=== PATIENT | female | born 1990 | race Caucasian/White ===

== ENCOUNTER 2016-12-15 | Inpatient (IN) | payer OTHER ==
[~2016-12-15] MED LIST: AMOXICILLIN PO; AMOXICILLIN875 MG PO; AMOXIL875 MG PO; ERYTHROMYCIN O3.5 GM OD; FLEXERIL PO; FLEXERIL10 MG PO; HYDROCODON-ACE1 EAC7 PO; HYDROCODON-ACE1 EACH PO; IBUPROFEN400 MG PO; KETOPROFEN PO; KLONOPIN PO; LORTAB 5/500 TA1 TA1 PO; MEDROL4 MG/DOSE- PO; NAPROSYN500 MG PO; ORUDIS75 M1 PO; PHENERGAN PO; PHENERGAN25 MG PO; PROZAC PO; ROBITUSSIN ALL118 ML PO; SEROQUEL PO; ZITHROMAX PO
--- NOTE | ~2016-12-15 | DS ---
Unit #: [id number] #: [id number] Patient: REJI HEARN [id number] [facility] [address] [place] [address] [id number] I MR#: [id number] NAME: REJI HEARN. ROOM: [facility] Age: 26 Sex: F Admission Date: 12/15/2016 : 1990 Discharge Date: 12/17/2016 Attending Physician: Tino Gomez M.D. Primary Care Physician: Generic Doctor Not In System DISCHARGE SUMMARY REASON FOR ADMISSION Homicidal ideation, polysubstance abuse. DIAGNOSTIC STUDIES LABORATORY RESULTS: Urine drug screen positive for marijuana. HOSPITAL COURSE The patient was admitted to inpatient unit on 12/15/2016 and discharged on 12/17/2016. The patient was treated with chemical dependency group, structured milieu, psychoeducation, and medication management. The patient responded well with the above modalities of treatment, started on detox protocol and detox monitoring. The patient was subsequently discharged with a plan to follow up in outpatient program. DISCHARGE MEDICATIONS Latuda 60 mg daily for psychosis, Neurontin 300 mg t.i.d. for mood stabilization and anxiety, and doxepin 100 mg at bedtime for sleep. DISCHARGE DIAGNOSES Psychiatric: 1. Bipolar mood disorder, not otherwise specified, F31.89. 2. Amphetamine use disorder, moderate, F15.20. Secondary diagnosis: Deferred. Medical diagnoses: History of kidney stones, scoliosis. Stressors: Psychosocial stressors. DISCHARGE INSTRUCTIONS The patient is to follow up in outpatient clinic as per social contact worker. CONDITION ON DISCHARGE The patient was pleasant and cooperative. Denied any psychotic symptom or any suicidal ideation. PROGNOSIS Guarded. DIET AND ACTIVITY As tolerated. Dictated by... Tino Gomez M.D. Unit #: [id number] #: [id number] Patient: REJI HEARN SZC/modl TD: 12/18/2016 00:09 JOB #: [id number] DISCHARGE SUMMARY Page 1 of 1 X Tino Gomez MD X DISCHARGE SUMMARY
--- NOTE | ~2016-12-15 | HP ---
Unit #: [id number] #: [id number] Patient: BRONWYN HEARN [id number] [place] [address] [id number] I MR#: [id number] NAME: BRONWYN HEARN. ROOM: [facility] Age: 26 Sex: F Admission Date: 12/15/2016 : 1990 Attending Physician: Tino Gomez M.D. Admitting Physician: Tino Gomez M.D. Primary Care Physician: Generic Doctor Not In System HISTORY AND PHYSICAL HISTORY OF PRESENT ILLNESS Bronwyn is a 26-year-old female admitted on 12/15/[address] [place] [address] for homicidal ideations. PAST MEDICAL HISTORY 1. Scoliosis 2. Bilateral chronic glomerulonephritis and current bacterial conjunctivitis PAST SURGICAL HISTORY None. SOCIAL HISTORY Smokes one pack of cigarettes daily, drinks three to four times weekly and frequent use of methamphetamine and marijuana. She is currently single and living with her ji-iaxyoo-po-law. FAMILY HISTORY (1) . REVIEW OF SYSTEMS CONSTITUTIONAL: No fever or chills. HEENT: Denies any sore throat, ear pain or runny nose. CARDIOVASCULAR: Denies chest pain, irregular heart rhythm or palpitations. CHEST: Denies shortness of breath or cough. No hemoptysis. GASTROINTESTINAL: Denies nausea, vomiting, diarrhea or chronic constipation. ENDOCRINE: Denies history of increased thirst or urination. No recent significant weight loss or gain. GENITOURINARY: Denies dysuria, frequency, or hematuria. SKIN: Denies any rashes. HEMATOLOGIC: Denies history of increased bleeding or bruising. MUSCULOSKELETAL: Denies any hot, swollen joints. No generalized muscle pain. NEUROLOGIC: Denies problems with vision or speech. No frequent, severe headaches. No numbness, tingling or weakness in any extremities. Denies loss of bladder or bowel control. CURRENT MEDICATIONS None. Unit #: [id number] #: [id number] Patient: BRONWYN HEARN ALLERGIES Tramadol and trazodone PHYSICAL EXAMINATION GENERAL: Alert, oriented, in no acute distress. VITAL SIGNS: Blood pressure 96/70, heart rate 96, temperature 98.3. HEIGHT: 5 foot 7 inches. WEIGHT: 120 pounds. SKIN: Warm and dry without rash or lesion. HEENT: Right eye hyperemia of the conjunctiva. NECK: Supple without lymphadenopathy or thyromegaly. HEART: Regular rate and rhythm without murmur. LUNGS: Clear. ABDOMEN: Soft, nontender, without masses or hepatosplenomegaly. : Not done. EXTREMITIES: No evidence of cyanosis, clubbing or edema. Moves all without focal deficit. NEUROLOGICAL: Grossly within normal limits. Cranial Nerves: II: Visual dior are intact. III, IV AND : Extraocular movements are intact. Pupils are equal, round and reactive to light. V: Facial sensation is grossly normal. VII: Facial movements and expression are normal. VIII: Auditory acuity grossly intact. IX, X: Uvula is midline. Phonation is normal. XI: Patient shrugs shoulders and turns head normally. XII: Tongue protrudes in the midline. Sensory and Motor Function: Sensory and motor sensation is grossly normal. Motor: moves all extremities well. Coordination: Gait is normal. Deep Tendon Reflexes: Intact. IMPRESSION 1. Psychiatric admission. 2. Scoliosis. 3. Bilateral chronic glomerulonephritis and current bacterial conjunctivitis. RECOMMENDATIONS Psychiatric, per psychiatrist. MEDICAL: I see no contraindications to participating in facility's activities. MEDICAL PROGNOSIS Good. MEDICAL CONDITION Stable. Dictated by... Catie Case/wilfredo TD: 12/16/2016 03:56 Unit #: [id number] #: [id number] Patient: BRONWYN HEARN JOB #: [id number] HISTORY AND PHYSICAL Page 1 of 1 X RUBIA ORTIZ APRN X HISTORY AND PHYSICAL
--- NOTE | ~2016-12-15 | CO ---
Unit #: [id number] #: [id number] Patient: BRONWYN HEARN [id number] [place] [address] [id number] MR#: [id number] NAME: BRONWYN HEARN. ROOM: [facility] Age: 26 Sex: F Admission Date: 12/15/2016 : 1990 Attending Physician: Tino Gomez M.D. Primary Care Physician: Generic Doctor Not In System Consultation Date: 12/15/2016 CONSULTATION REPORT JOB NOTE: DICTATOR FOR NOT DICTATED HISTORY OF PRESENT ILLNESS Bronwyn reports burning and itching in her right eye for the past day, initially started on 12/14/2016. She has had pink eye in the past and believes that this is the same. She woke up with her eye closed due to discharge, now frequently has discharge as well. She has been washing her hands and using hand spot remover. No complaints. PHYSICAL EXAMINATION CARDIAC: Regular rate and rhythm. No murmurs, gallops, or rubs. RESPIRATORY: Clear to auscultation bilaterally. ENT: Right eye, hyperemia of the conjunctiva with yellow discharge. ASSESSMENT AND PLAN Bacterial conjunctivitis. We will begin polymyxin B/trimethoprim drops in right eye. Please notify, if symptoms are unresolved. Dictated by... Gita Saunders A.P.R.N. for Sabina Collazo/janie TD: 12/16/2016 01:23 JOB #: [id number] CONSULTATION REPORT Page 1 of 1 X GITA ORTIZ APRN X CONSULTATION REPORT
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
--- NOTE | ~2016-12-15 | A ---
[facility] Nutrition Therapy DATE: 12/16/16 Patient: REJI HEARN Physician: IGO Address: [address] [place] [address] Room/Bed: [address], Zip: [place] [address] Admit Date: 12/15/16 Date of : [birth year] Height: 5 7 Weight: 119 54.59203 NUTRITIONAL ASSESSMENT: REASON: LOW BMI (18.8) PATIENT ADMITTED FOR HI AND ANXIETY PMH: SCOLIOSIS, CKD Anthropometrics: HT: 67", WT: 120#, BMI: 18.8, %IBW: 89 Labs: NO LABS AVAILABLE Meds: DOXAPIN, ZYPREXA, DETOX PROTOCOL Assessment: PATIENT IS A 26 Y/O FEMALE ADMITTED FOR HI AND ANXIETY. PATIENT IS CURRENTLY EMPLOYED, LIVES WITH HER MOTHER, SMOKES 1 PPD, HAS DAILY SUBOXONE USE, AND FREQUENT USE OF ETOH, METH, MARIJUANA, AND KLONOPIN. PATIENT HAS BEEN NON-COMPLIANT WITH HER MEDICATIONS FOR SEVERAL MONTHS, AND SHE HAS A HX OF INPATIENT PSYCH AND CHEMICAL DEPENDENCY TREATMENT. UPON ADMIT PATIENT STATED A POOR APPETITE WITH A 30# WEIGHT LOSS X SEVERAL MONTHS, AND HAS NOT BEEN SLEEPING. WEIGHT HX PER [employer] SHOWS WEIGHT FLUCTUATIONS OF 105-124# OVER THE LAST 6 YEARS. WT OF 150# IN 04/2016 IS SUSPECTED TO BE ERRONEOUS. NURSING REPORTS FAIR PO INTAKES. IT IS NOTED THAT PATIENT'S BEHAVIOR HAS BEEN VERY AGGRESSIVE, DEMANDING, AND IMPULSIVE SINCE PATIENT HAS BEEN ON THE UNIT. PATIENT DID NOT SCORE ANY NUTRITIONAL RISK POINTS. PATIENT IS ON A REGULAR DIET WITH NO CAFFEINE. PATIENT'S BMI AND IBW % IS SLIGHTLY BELOW HEALTHY RANGES. THIS RD SUSPECTS WEIGHT AND APPETITE WILL STABILIZE AND POSSIBLY INCREASE FOLLOWING DETOX AND MEDICATION REINITIATION. Dx: INADEQUATE NUTRIENT INTAKE R/T CURRENT CONDITION, DECREASED APPETITE AEB SELF-REPORTED WEIGHT LOSS, LOW BMI OF 18.8 Intervention: REGULAR DIET WITH NO CAFFEINE, MEDS PER MD, DETOX, PSYCH Monitoring, Evaluation and Goals: 1. PO INTAKES >50% OF MEALS 2. PREVENT, CORRECT MICRO/MACRO NUTRIENT DEFICIENCIES MONITOR: WEIGHTS, LABS, PO/FLUID INTAKES Recommendations: 1. CONTINUE REGULAR DIET WITH NO CAFFEINE TOLERATED. OFFER SNACKS BETWEEN MEALS TO INCREASE PO AND KCAL INTAKES [facility] Therapy DATE: 05/22/17 Patient: REJI HEARN Physician: GIO Address: [address] [place] [address] Room/Bed: [address], Zip: [place] [address] Admit Date: 12/15/16 Date of : [birth year] Height: 5 7 Weight: 119 54.42018 2. ENCOURAGE ADEQUATE PO AND FLUID INTAKES 3. IF PO INTAKES ARE BELOW 50% OF MEALS PLEASE ORDER ENSURE BID (PER MD) TO PROMOTE ADEQUATE KCAL AND PROTEIN INTAKES RD TO F/U PER PROTOCOL AND PRN R/T PATIENT MILDLY COMPROMISED Respectfully, MATHEW LOPEZ, DAYSI, LD [employer] [facility] cc: client file
[2016-12-16 09:40] LABS: BASOPHIL# 0.1 X10e3 (0-0.3); BASOPHIL% 1.7 % (0-2.5); EOSINOPHIL# 0.3 X10e3 (0-0.7); EOSINOPHIL% 4.3 % (0.0-7.0); HEMATOCRIT 43.3 % (35.0-45.0); HEMOGLOBIN 14.3 gm/dL (12.0-16.0); LYMPHOCYTE# 2.7 X10e3 (1.0-3.5); LYMPHOCYTE% 42.4 % (17.0-45.0); MEAN CORPUSCULAR HEMOGLOBIN 30.3 PG (28-34); MEAN PLATELET VOLUME 8.6 FL (6.5-11.5); MONOCYTE# 0.6 X10e3 (0-1.0); MONOCYTE% 9.9 % (3.0-12.0); NEUTROPHIL# 2.7 X10e3 (1.5-7.1); NEUTROPHIL% 41.7 % (40-75); PLATELET COUNT 240 X10e3 (140-420); RED BLOOD COUNT 4.71 X10e (3.90-5.30); RED CELL DISTRIBUTION WIDTH 13.7 % (11.0-15.5); WHITE BLOOD COUNT 6.5 X10e3 (4.0-10.5)
[2016-12-16 09:44] LABS: DIFF IND NO
[2016-12-16 10:16] LABS: ALBUMIN SERUM 3.4 g/dL (3.5-5.0); BILIRUBIN,TOTAL 0.4 mg/dL (0.2-2.0); BUN/CREATININE RATIO 21.42; CREATININE SERUM 0.7 mg/dL (0.6-1.4); GLOM FILT RATE Estimated 119.6 mL/min (>60); POTASSIUM 3.7 mmol/L (3.5-5.1)
== END 2016-12-17 12:50 | DRG 885 ==
LOC: P2S 03:56
PROVIDERS: Psychiatry & Neurology Psychiatry
DX: F31.89 Other bipolar disorder (principal); F15.20 Other stimulant dependence, uncomplicated; N03.9 Chronic nephritic syndrome with unspecified morphologic changes; M41.9 Scoliosis, unspecified; Z87.442 Personal history of urinary calculi; F41.9 Anxiety disorder, unspecified; H10.89 Other conjunctivitis
CPT/HCPCS: 80053; 84703; 85025; 86592

== ENCOUNTER 2016-12-31 17:50 | Emergency (ER) | payer OTHER ==
--- NOTE | ~2016-12-31 | CT71 ---
[facility] A Service of [facility] RADIOLOGY TEXT RESULTS PATIENT: diana bolton LOCATION: [facility] : [birth year] UNIT #: [id number] AGE: [address]: Bunny Perez MD SEX: F ORDER DR: [id number] [facility] [address] [place], [place] [address] [id number] MR#: [id number] Acc #: [id number] NAME: DIANA BOLTON : 1990 SEX: F STUDY DATE/TIME: 12/31/2016 18:16 UNIT: SAW ROOM: STUDY DESCRIPTION: CT Head Wo Contrast Attending Physician: Bunny Perez M.D. Ordering Physician: Bunny Perez M.D. Primary Care Physician: Generic Doctor Not In System MEDICAL IMAGING REPORT This report is preliminary unless electronic signature is present EXAM CT head without IV contrast COMPARISON July 12, 2016. INDICATIONS 26-year-old female with altered mental status today. Suspected drug overdose. FINDINGS This CT exam was performed with one or more of the following radiation dose reduction techniques: Automatic exposure control, adjustment of mA and/or kV according to patient size, and iterative reconstruction. The exam is significantly limited by patient motion. Multiple attempts performed, but best images were obtained. Tiny mucous retention cysts versus polyps in the left maxillary sinus. Mastoid air cells, middle ears and visualized paranasal sinuses are otherwise well aerated. There may be a tiny mucous retention cyst versus polyp of the left sphenoid sinus. No acute fractures or suspicious osseous lesions. Normal cerebral volume. No mass effect or abnormal extraaxial fluid collection. No acute intracranial hemorrhage. Although evaluation is limited by motion, there is no evidence of acute ischemia. IMPRESSION No acute intracranial abnormality. Dictated by... Geovani Spaulding M.D. THIS IS AN ELECTRONICALLY VERIFIED REPORT Geovani Spaulding M.D. at 01/06/2017 7:35 AM [facility] A Service of [facility] RADIOLOGY TEXT RESULTS PATIENT: che,diana LOCATION: [facility] : [birth year] UNIT #: [id number] AGE: [address]: Bunny Perez MD SEX: F ORDER DR: JARED/coleen TD: 12/31/2016 23:46 JOB #: [id number] MEDICAL IMAGING REPORT Page 1 of 1 COPY
== END 2016-12-31 19:22 | disposition home or self-care (01) ==
LOC: CED 17:50
DX: R40.1 Stupor (principal); F19.10 Other psychoactive substance abuse, uncomplicated; Z88.5 Allergy status to narcotic agent
CPT/HCPCS: 70450; 99284

== ENCOUNTER 2017-02-19 18:25 | Inpatient (IN) | payer OTHER ==
[~2017-02-19] VITALS: Ht 170.2 cm; Wt 52.2 kg
--- NOTE | ~2017-02-19 | CO ---
Unit #: [id number] #: [id number] Patient: REJI HEARN [id number] [place] [address] [id number] I MR#: [id number] NAME: REJI HEARN. ROOM: [facility] Age: 26 Sex: F Admission Date: 02/19/2017 : 1990 Attending Physician: Tino Gomez M.D. Primary Care Physician: Generic Doctor Not In System Consultation Date: 02/20/2017 CONSULTATION REPORT ORDERING PROVIDER Dr. Gomez. REASON FOR CONSULT Abnormal urinalysis. SUBJECTIVE When I went to see the patient, she was very sleepy and difficult to arouse. However, at this time, she denies any urinary complaints. OBJECTIVE An examination was deferred at this time due to patient's request. Her urinalysis reveals 1+ leukocyte esterase, trace protein, 1+ bacteria in her urine. Her vital signs are stable. ASSESSMENT Leukocytes in the urine. PLAN Get urine culture and sensitivity and urine gonorrhea and chlamydia. If either is positive, we will treat her appropriately. Dictated by... Catie Peacock/janie TD: 02/20/2017 23:31 JOB #: [id number] CONSULTATION REPORT Page 1 of 1 X TONI LAZCANO APRN CONSULTATION REPORT
--- NOTE | ~2017-02-19 | CO ---
Unit #: [id number] #: [id number] Patient: REJI HEARN [id number] [place] [address] [id number] I MR#: [id number] NAME: REJI HEARN. ROOM: P201 Age: 26 Sex: F Admission Date: 02/19/2017 : 1990 Attending Physician: Tino Gomez M.D. Primary Care Physician: Generic Doctor Not In System Consultation Date: 02/23/2017 CONSULTATION REPORT REASON FOR EVALUATION Possible pink eye. HISTORY OF PRESENT ILLNESS The patient is a 26-year-old female, originally admitted secondary to acute psychiatric inpatient/mental illness. Yesterday, it was noted by staff registered nurse the patient began having red injected conjunctiva on the right side as well as purulent drainage. She was initiated on ofloxacin ophthalmic yesterday. At the present time, she while opening her eyes has some difficulty opening her right eye secondary to it being matted shut. Her left eye exam is completely normal. She denies any visual complaints. She does state that she has a prior history of having a pink eye in the past. Extraocular muscles do appear to be intact. INITAL IMPRESSION Acute conjunctivitis, bacterial versus viral. PLAN Ofloxacin ophthalmic has already been initiated, this should be continued for a total of 5 days. If she develops any symptoms in her left eye, it maybe also initiated in her left eye. The patient is well aware in the past of the contagious nature of pink eye. She was encouraged to have appropriate hand washing. She will require contact isolation for approximately 24 hours while on antibiotics. Once the 24 hours is over, then she may participate with other patients. Certainly if her condition worsens, I would be happy to re-evaluate her at any point in time. Thank you Dr. Gomez for this consultation. Dictated by... Sabina Collazo/janie TD: 02/23/2017 19:43 JOB #: [id number] Unit #: [id number] #: [id number] Patient: REJI HEARN CONSULTATION REPORT Page 1 of 1 X Ravindra Benites MD CONSULTATION REPORT
--- NOTE | ~2017-02-19 | PN ---
Unit #: [id number] #: [id number] Patient: BRONWYN MINA [id number] [facility] [address] [place] [address] [id number] I MR#: [id number] NAME: BRONWYN MINA. ROOM: P201 Age: 26 Sex: F Admission Date: 02/19/2017 : 1990 Attending Physician: Tino Gomez M.D. Admitting Physician: Tino Gomez M.D. Primary Care Physician: Generic Doctor Not In System [facility] PROGRESS NOTES DATE OF SERVICE 02/23/2017 DISCUSSION Bronwyn iMna is a 26-year-old female seen on 02/23/2017. Patient interviewed, chart reviewed. Obtained information from nursing staff. Patient reports feeling anxious, nervous, but able to contract for safety. The patient's vital stable 98.2, 84, 82/50. Complete review of systems unremarkable. MENTAL STATUS EXAMINATION General appearance, patient dressed casually. Attention span and concentration fair. Oriented to time, place and person. Mood and affect sad, dysphoric. Speech monotone. Thought process concrete. Patient denied any thoughts of harming self or others. Recent and remote memory poor. Insight and judgement poor. DIAGNOSES Mood disorder NOS ASSESSMENT/PLAN Advise to continue with current medication and therapeutic protocol. If needed consider further adjustment of medication. Dictated by... Sabina Porter/wilfredo TD: 02/25/2017 03:53 JOB #: [id number] Unit #: [id number] #: [id number] Patient: BRONWYN MINA [facility] PROGRESS NOTES Page 1 of 1 X Tino Gomez MD X PROGRESS NOTE
--- NOTE | ~2017-02-19 | PN ---
Unit #: [id number] #: [id number] Patient: REJI HEARN [id number] [facility] [address] [place] [address] [id number] MR#: [id number] NAME: REJI HEARN. ROOM: 71 Age: 26 Sex: F Admission Date: 02/19/2017 : 1990 Attending Physician: Tino Gomez M.D. Admitting Physician: Tino Gomez M.D. Primary Care Physician: Generic Doctor Not In System [facility] PROGRESS NOTES DATE 02/20/2017 DISCUSSION Ms. Barnhart is a 26-year-old female. Patient continues to report feeling sad, depressed, withdrawn, isolative, flat affect. Patient reported having suicidal ideation. Compliant with medication but seclusive, isolative. Complete review of system unremarkable. MENTAL STATUS EXAMINATION General appearance, patient dressed casually. Attention span, concentration fair. Oriented in place and person. Mood and affect sad, depressed, withdrawn. Speech monotone. Thought process concrete. Patient denied any homicidal ideation or any hallucinations but sad, depressed, suicidal ideation. Recent and remote memory poor. Insight and judgement poor. Patient's urine drug screen was positive for benzodiazepine, amphetamine, marijuana. CMP was remarkable for AST 47, total protein 5.6. UA 1+ leukocyte esterase, bacteria and WBC 10-25. test negative. CBC unremarkable. DIAGNOSES 1. Bipolar mood disorder NOS. 2. Amphetamine use disorder, moderate. 3. Marijuana abuse, moderate. ASSESSMENT/PLAN Advised to continue with current medication and therapeutic protocol. If needed, consider further adjustment of medication. Dictated by... Sabina Porter/luis TD: 02/20/2017 18:06 JOB #: [id number] Unit #: [id number] #: [id number] Patient: REJI HEARN [facility] PROGRESS NOTES Page 1 of 1 X Tino Gomez MD PROGRESS NOTE
--- NOTE | ~2017-02-19 | HP ---
Unit #: [id number] #: [id number] Patient: REJI HEARN [id number] [place] [address] [id number] I MR#: [id number] NAME: REJI HEARN. ROOM: [facility] Age: 26 Sex: F Admission Date: 02/19/2017 : 1990 Attending Physician: Tino Gomez M.D. Admitting Physician: Tino Gomez M.D. Primary Care Physician: Generic Doctor Not In System HISTORY AND PHYSICAL HISTORY OF PRESENT ILLNESS The patient is a 26-year-old female admitted to [facility] on 02/19/2017 to withdrawal from heroin. PAST MEDICAL HISTORY 1. Scoliosis. 2. History of bilateral chronic glomerulonephritis. PAST SURGICAL HISTORY The patient denies. SOCIAL HISTORY She is unemployed and homeless, smokes one pack of cigarettes daily, uses marijuana and heroin. FAMILY MEDICAL HISTORY Noncontributory. ALLERGIES Trazodone and tramadol. CURRENT MEDICATIONS 1. Latuda 2. Doxepin 3. Neurontin REVIEW OF SYSTEMS CONSTITUTIONAL: No fever or chills. HEENT: Denies any sore throat, ear pain or runny nose. CARDIOVASCULAR: Denies chest pain, irregular heart rhythm or palpitations. CHEST: Denies shortness of breath or cough. No hemoptysis. GASTROINTESTINAL: Denies nausea, vomiting, diarrhea or chronic constipation. ENDOCRINE: Denies history of increased thirst or urination. No recent significant weight loss or gain. GENITOURINARY: Denies dysuria, frequency, or hematuria. SKIN: Denies any rashes. HEMATOLOGIC: Denies history of increased bleeding or bruising. MUSCULOSKELETAL: Denies any hot, swollen joints. No generalized muscle pain. NEUROLOGIC: Denies problems with vision or speech. No frequent, severe headaches. No numbness, tingling or weakness in any extremities. Denies loss of bladder or bowel control. Unit #: [id number] #: [id number] Patient: REJI HEARN PHYSICAL EXAM GENERAL: She is awake, alert and oriented in no acute distress. VITAL SIGNS: Temperature 97.8, heart rate 89, respiration 16, blood pressure 96/60. HEIGHT: 5'7". WEIGHT: 115 pounds. SKIN: Warm and dry without rash or lesion. HEENT: Normocephalic. TMs not viewed. Oral and nasal passages clear. Conjunctivae clear. PERRLA. EOMs intact. NECK: Supple without lymphadenopathy or thyromegaly. HEART: Regular rate and rhythm without murmur. LUNGS: Clear. ABDOMEN: Soft, nontender. : Not done. EXTREMITIES: No evidence of cyanosis, clubbing or edema. Moves all without focal deficit. NEUROLOGICAL: Grossly within normal limits. Cranial Nerves: II: Visual dior are intact. III, IV AND : Extraocular movements are intact. Pupils are equal, round and reactive to light. V: Facial sensation is grossly normal. VII: Facial movements and expression are normal. VIII: Auditory acuity grossly intact. IX, X: Uvula is midline. Phonation is normal. XI: Patient shrugs shoulders and turns head normally. XII: Tongue protrudes in the midline. Sensory and Motor Function: Sensory and motor sensation is grossly normal. Motor: moves all extremities well. IMPRESSION 1. Psychiatric admission. 2. History of scoliosis. 3. History of bilateral chronic glomerulonephritis. 4. Nicotine dependence. 5. Polysubstance use. RECOMMENDATIONS Psychiatric per psychiatrist. MEDICAL: No contraindication to participate in facility activities. MEDICAL PROGNOSIS Good. MEDICAL CONDITION Stable. Dictated by... Catie Peacock/wilfredo TD: 02/20/2017 23:00 JOB #: [id number] Unit #: [id number] #: [id number] Patient: REJI HEARN HISTORY AND PHYSICAL Page 1 of 1 X TONI LAZCANO APRN HISTORY AND PHYSICAL
--- NOTE | ~2017-02-19 | A ---
[facility] Nutrition Therapy DATE: 02/21/17 Patient: REJI Carrillo DHIRAJ Physician: GIO Address: [address] Room/Bed: [address], Zip: [place] [address] Admit Date: 02/19/17 Date of : [birth year] Height: 5 7 Weight: 114 52.82945 NUTRITIONAL ASSESSMENT: REASON: LOW BMI (18.0) PATIENT ADMITTED FOR SUBSTANCE ABUSE AND DEPRESSION PMH: SCOLIOSIS, CKD Anthropometrics: HT: 67", WT: 115#, BMI: 18.0, %IBW: 85 Labs: 02/20/17- ALB: 3.2, ALL OTHER NUTRITION LABS WNL Meds: DOXEPIN, LATUDA, VISTARIL, NEURONTIN Assessment: PATIENT IS A 26 Y/O MALE ADMITTED FOR DEPRESSION AND SUBSTANCE ABUSE. PATIENT IS CURRENTLY UNEMPLOYED, HOMELESS, SMOKES 1 PPD, HAS DAILY MARIJUANA USE, AND OCCASIONAL USE OF ETOH, XANAX, AND METH. IT IS ALSO NOTED THAT PATIENT'S BOYFRIEND COMMITTED SUICIDE ON 02/06/17. PATIENT HAS BEEN NON-COMPLIANT WITH HER MEDICATIONS, WHICH SHE HAS A HX OF, AND SHE ALSO HAS A HX OF MULTIPLE PSYCH AND CHEMICAL DEPENDENCY HOSPITALIZATIONS. RD ASSESSED 12/16/16- NOTE REVIEWED. UPON ADMIT PATIENT STATED A GOOD APPETITE WITH NO RECENT WEIGHT CHANGES, AND SHE WILL GO DAYS WITHOUT SLEEPING. WEIGHT HX PER [employer] SHOWS WEIGHT FLUCTUATIONS OF 105-124# OVER THE LAST 6 YEARS. NURSING REPORTED POOR PO INTAKES UPON ADMIT, HOWEVER PATIENT SLEPT MOST OF THE DAY. SHE DID NOT SCORE ANY NUTRITIONAL RISK POINTS. THERE ARE NO SKIN OR GI ISSUES NOTED ATT. PATIENT IS ON A REGULAR DIET. CURRENT PSYCH MEDS MAY CAUSE AN INCREASE IN WEIGHT AND APPETITE, WHICH IS DESIRED. Dx: INADEQUATE NUTRIENT R/T DEPRESSION, SUBSTANCE ABUSE AEB LOW BMI, <90% IBW Intervention: REGULAR DIET, MEDS PER MD, PSYCH Monitoring, Evaluation and Goals: 1. ADEQUATE PO INTAKES >50-75% OF MEALS 2. PREVENT, CORRECT MICRO/MACRO NUTRIENT DEFICIENCIES 3. WEIGHT; PROMOTE A STEADY WEIGHT GAIN TOWARDS A HEALTHY BMI OF 19-25, PREVENT WEIGHT LOSS MONITOR: WEIGHTS, LABS, PO/FLUID INTAKES Recommendations: 1. CONTINUE REGULAR DIET TOLERATED. OFFER SNACKS BETWEEN MEALS. WILL INCREASE PATIENT'S ENTREES TO LARGER PORTIONS [facility] Nutrition Therapy DATE: 02/21/17 Patient: REJI HEARN Physician: GIO Address: [facility] [address] Room/Bed: P171-1 [facility], Zip: [place] [address] Admit Date: 02/19/17 Date of : [birth year] Height: 5 7 Weight: 114 52.20415 2. ENCOURAGE ADEQUATE PO AND FLUID INTAKES 3. WEIGH PATIENT ROUTINELY (EVERY 3-4 DAYS) 4. IF PO INTAKES ARE BELOW 50% OF MEALS PLEASE ORDER ENSURE BID TO PROMOTE ADEQUATE KCAL AND PROTEIN INTAKES RD TO F/U PER PROTOCOL AND PRN R/T PATIENT MILDLY COMPROMISED Respectfully, MATHEW LOPEZ, DAYSI, LD [employer] [facility] [employer] cc: client file
--- NOTE | ~2017-02-19 | PN ---
Unit #: [id number] #: [id number] Patient: BRONWYN MINA [id number] [facility] [address] [place] [address] [id number] MR#: [id number] NAME: BRONWYN MINA. ROOM: P201 Age: 26 Sex: F Admission Date: 02/19/2017 : 1990 Attending Physician: Tino Gomez M.D. Admitting Physician: Tino Gomez M.D. Primary Care Physician: Generic Doctor Not In System [facility] PROGRESS NOTES DATE OF SERVICE 02/22/2017 DISCUSSION Ms. Bronwyn Mina is a 26-year-old female seen on 02/22/2017. Patient interviewed, chart reviewed. Obtained information from nursing staff. Patient seclusive, isolative, guarded, flat affect. Vital signs stable 98.4, 79, 91/59. Patient continues to be withdrawn, isolative, flat affect. Complete review of systems unremarkable. MENTAL STATUS EXAMINATION General appearance, patient dressed casually. Attention span and concentration fair. Oriented in place and person. Mood and affect sad, dysphoric, withdrawn, flat affect. The patient denied any suicidal or homicidal ideation but guarded, paranoid. Recent and remote memory poor. Insight and judgement poor. DIAGNOSES 1. Bipolar mood disorder NOS. 2. Cannabis abuse disorder moderate. 3. Sedative abuse disorder moderate. 4. Amphetamine use disorder moderate. ASSESSMENT/PLAN Advise to continue with current medication and therapeutic protocol. If needed consider further adjustment of medication. Dictated by... Sabina Porter/wilfredo TD: 02/24/2017 03:24 JOB #: [id number] Unit #: [id number] #: [id number] Patient: BRONWYN MINA [facility] PROGRESS NOTES Page 1 of 1 X Tino Gomez MD PROGRESS NOTE
--- NOTE | ~2017-02-19 | DS ---
Unit #: [id number] #: [id number] Patient: REJI HEARN [id number] [facility] [address] [place] [address] [id number] I MR#: [id number] NAME: REJI HEARN. ROOM: [facility] Age: 26 Sex: F Admission Date: 02/19/2017 : 1990 Discharge Date: 02/24/2017 Attending Physician: Tino Gomez M.D. DISCHARGE SUMMARY REASON FOR ADMISSION Depression. DIAGNOSTIC STUDIES LABORATORY RESULTS: Urine drug screen positive for benzodiazepine, amphetamine, marijuana. HOSPITAL COURSE The patient was admitted to inpatient unit on 02/19/2017 and discharged on 02/24/2017. The patient was treated on the inpatient unit with group therapy, individual therapy, chemical dependency group, detox protocol, and detox monitoring. The patient was responsive to treatment. Subsequently, the patient was discharge with a plan to follow up in outpatient program. DISCHARGE MEDICATIONS Doxepin 100 mg at bedtime for sleep, Latuda 60 mg daily for mood stabilization, Neurontin 300 mg t.i.d. for chronic pain and anxiety. DISCHARGE DIAGNOSES Psychiatric: Bipolar mood disorder, recurrent, depressed F31.9; amphetamine use disorder, moderate, F15.20; cannabis abuse disorder, moderate, F12.20; sedative hypnotic use disorder, severe, F13.20. Secondary diagnosis: Deferred. Medical diagnoses: History of kidney stones and scoliosis. Stressors: Psychosocial stressor. DISCHARGE INSTRUCTIONS The patient to follow up in outpatient clinic as per bilingual social worker. CONDITION ON DISCHARGE The patient was pleasant and cooperative. Denied any psychotic symptom or any suicidal ideation. PROGNOSIS Guarded. DIET AND ACTIVITY As tolerated. Unit #: [id number] #: [id number] Patient: REJI HEARN Dictated by... Tino Gomez M.D. SZC/wilburl TD: 02/26/2017 02:16 JOB #: [id number] DISCHARGE SUMMARY Page 1 of 1 X Tino Gomez MD X DISCHARGE SUMMARY
--- NOTE | ~2017-02-19 | PA ---
Unit #: [id number] #: [id number] Patient: [facility] [id number] [facility] [address] [place] [address] [id number] I MR#: [id number] NAME: REJI MINA. ROOM: P171 Age: 26 Sex: F Admission Date: 02/19/2017 : 1990 Date of Assessment: Attending Physician: Tino Gomez M.D. Admitting Physician: Tino Gomez M.D. PSYCHIATRIC ASSESSMENT INFORMANTS The patient reliability, poor informant and chart reliability, good. CHIEF COMPLAINT Depression and substance abuse. HISTORY OF PRESENT ILLNESS Ms. Ayana Mina is a 26-year-old female, presented with the above-mentioned complaint. The patient has a history of previous multiple admissions, last admitted on 01/30/2017. The patient reported that she has been feeling really sad, depressed, not sleeping, bad anxiety, trembling, panic attack, and nausea. The patient tested positive for benzodiazepine, amphetamine, and marijuana. The patient currently homeless, increase in depression, substance abuse, referred by [facility] today for having substances in her system. The patient's boyfriend of 9 years committed suicide on 02/06/2017. The patient reports suicidal ideation with a plan to overdose by hanging herself. The patient also endorsing feeling of hopelessness and worthlessness. The patient has not been compliant with her medication. The patient reported use of marijuana, snorting meth, taking Xanax. The patient denied any withdrawal symptoms, but having above-mentioned symptoms. Needing inpatient admission at this time for psychiatric stabilization. PAST PSYCHIATRIC HISTORY Remarkable [facility] and previous inpatient treatment. FAMILY HISTORY AND SOCIAL HISTORY The patient currently homeless, poor support system. No history of abuse. MEDICAL HISTORY Remarkable for history of scoliosis, bilateral chronic glomerulonephritis, and history of bacterial conjunctivitis. ALLERGIES No known drug allergies. MEDICATION HISTORY The patient is on doxepin 100 mg at bedtime, Latuda 60 mg at bedtime, and Neurontin 300 mg t.i.d. ALLERGIES No known drug allergies. Unit #: [id number] #: [id number] Patient: REJI MINA SUBSTANCE ABUSE HISTORY The patient reported tobacco use, age of onset 12; alcohol, age of onset 12; marijuana, age of onset 14; opioid, age of onset 17; amphetamine, age of onset 21; benzodiazepine, age of onset 14. Longest period of sobriety 9 months, last period of sobriety 2 weeks ago. The patient reported history of blackouts, withdrawal symptoms, and IV drug use. Denied any HIV or hepatitis. The patient reported withdrawal symptoms such as vomiting, diarrhea, hot and cold flashes, and body ache. REVIEW OF SYSTEMS HEENT: Eyes, clear. Ears, nose, mouth, and throat; clear. CARDIOVASCULAR: Unremarkable. RESPIRATORY: Unremarkable. GI: Unremarkable. : Unremarkable. SKIN: Unremarkable. LYMPH NODE: Unremarkable. NEUROLOGIC: Unremarkable. ENDOCRINE: Unremarkable. HEMATOLOGIC: Unremarkable. ALLERGIC/IMMUNOLOGIC: Unremarkable. MUSCULOSKELETAL: Muscle strength and tone, no atrophy or abnormal movement. Gait normal. MENTAL STATUS EXAMINATION CONSTITUTIONAL: Measurement of vital signs; temperature 97.5, heart rate 66, respirations 16, oxygen saturation 100%, and blood pressure 97/67. Height 5 feet 7 inches and weight 115 pounds. GENERAL APPEARANCE: The patient dressed casually. The patient not show any facial deformity. MUSCULOSKELETAL: Please see above. PSYCHIATRIC EXAMINATION Description of speech; slow in volume and rate and nonspontaneous. Description of thought process, circumstantial. Description of association, intact. Description of abnormal psychotic thinking; the patient denied any hallucinations or delusions, but suicidal ideation with a plan as mentioned above. Substance abuse. Denied any homicidal ideation or any psychotic symptom. Description of the patient's judgment: Concerning everyday activity, poor. Social situation, poor. Concerning psychiatric condition, poor. Complete mental status examination; oriented in time, place, and person. Recent and remote memory, fair. Attention span and concentration, fair. Language, able to name object and repeat phrases. Fund of knowledge, aware of current event and passive vocabulary intact. Mood and affect, sad and dysphoric. ASSETS AND LIABILITIES Assets, the patient is articulate and able to take care of her ADL. Liability, history of depression and substance abuse. ADMITTING DIAGNOSES Psychiatric: Bipolar mood disorder, recurrent, depressed, severe, F31.9; amphetamine use disorder, moderate, F15.20; cannabis abuse disorder, F12.20; amphetamine use disorder, F15.20; and sedative hypnotic use disorder, F13.20. Unit #: [id number] #: [id number] Patient: REJI MINA Secondary diagnosis: Deferred. Medical diagnoses: History of kidney stones and scoliosis. Stressors: Psychosocial stressors. PSYCHIATRIC PLAN AND TREATMENT GOAL AND DISCHARGE PLAN 1. Advised to admit the patient on the inpatient unit. Provide safe, supportive, and structured environment. 2. Ordered labs; CBC, CMP, UA, and UDS. 3. Precaution for self-harm. 4. Detox protocol and detox monitoring. 5. Advised to resume home medication. If needed, consider further adjustment of medication. The patient to attend group therapy, individual therapy, and chemical dependency group. Treatment goal to attain euthymic mood, gain insight into her problem, and learn coping skills. DISCHARGE PLAN Plan to stabilize the patient and consider followup in outpatient program. ESTIMATED LENGTH OF STAY 5 days. Dictated by... Tino Gomez M.D. LIOR/janie TD: 02/20/2017 15:32 JOB #: [id number] PSYCHIATRIC ASSESSMENT Page 1 of 1 X Tino Gomez MD X PSYCHIATRIC ASSESSMENT
--- NOTE | ~2017-02-19 | PN ---
Unit #: [id number] #: [id number] Patient: BRONWYN MINA [id number] [facility] [address] [place] [address] [id number] MR#: [id number] NAME: BRONWYN MINA. ROOM: P171 Age: 26 Sex: F Admission Date: 02/19/2017 : 1990 Attending Physician: Tino Gomez M.D. Admitting Physician: Tino Gomez M.D. Primary Care Physician: Generic Doctor Not In System [facility] PROGRESS NOTES DATE 02/21/2017 DISCUSSION Ms. Bronwyn Mina is a 26-year-old female seen on 02/21/2017. Patient interviewed. Chart reviewed. Obtained information from nursing staff. Patient was compliant, cooperative but sad, depressed, withdrawn, isolative, flat affect. Patient still very shaky, anxious, nervous, having withdrawals from alcohol. Patient reported still very unsteady but vital signs 98.4, 83, 62. Patient still feeling sad, depressed. Complete review of system unremarkable. MENTAL STATUS EXAMINATION General appearance, patient dressed casually. Attention span, concentration fair. Oriented in time, place and person. Mood and affect labile. Speech monotone. Thought process concrete. Patient denied any thoughts of harming self or others but passive SI, withdrawn, isolative, guarded. Recent and remote memory poor. Insight and judgement poor. DIAGNOSES 1. Bipolar mood disorder NOS. 2. Cannabis abuse, moderate. 3. Sedative/hypnotic use disorder, moderate. 4. Amphetamine use disorder, moderate. ASSESSMENT/PLAN Advised to continue with current medication and therapeutic protocol. If needed, consider further adjustment of medication. Dictated by... Sabina Porter/luis TD: 02/21/2017 20:12 JOB #: [id number] Unit #: [id number] #: [id number] Patient: BRONWYN MINA [facility] PROGRESS NOTES Page 1 of 1 X Tino Gomez MD PROGRESS NOTE
[2017-02-20 09:53] LABS: URINE APPEARANCE CLEAR; URINE BILIRUBIN NEG (NEG); URINE BLOOD NEG (NEG); URINE COLOR YELLOW; URINE GLUCOSE NEG (NEG); URINE KETONE TRACE (NEG); URINE LEUKOCYTE ESTERASE 1+ (NEG); URINE NITRATE NEG (NEG); URINE PH 7.5 (5-8); URINE PROTEIN TRACE (NEG); URINE SPECIFIC GRAVITY 1.034 (1.003-1.035)
[2017-02-20 09:56] LABS: BASOPHIL# 0.2 X10e3 (0-0.3); BASOPHIL% 2.4 % (0-2.5); EOSINOPHIL# 0.4 X10e3 (0-0.7); EOSINOPHIL% 4.9 % (0.0-7.0); HEMATOCRIT 40.6 % (35.0-45.0); HEMOGLOBIN 13.6 gm/dL (12.0-16.0); LYMPHOCYTE# 3.1 X10e3 (1.0-3.5); LYMPHOCYTE% 41.2 % (17.0-45.0); MEAN CELL VOLUME 92.3 FL (83-96); MEAN CORPUSCULAR HEMOGLOBIN 30.8 PG (28-34); MEAN CORPUSCULAR HGB CONC 33.4 g/dL (30-36); MEAN PLATELET VOLUME 8.8 FL (6.5-11.5); MONOCYTE# 0.6 X10e3 (0-1.0); MONOCYTE% 8.4 % (3.0-12.0); NEUTROPHIL# 3.3 X10e3 (1.5-7.1); NEUTROPHIL% 43.1 % (40-75); PLATELET COUNT 304 X10e3 (140-420); RED CELL DISTRIBUTION WIDTH 14.4 % (11.0-15.5); WHITE BLOOD COUNT 7.6 X10e3 (4.0-10.5)
[2017-02-20 09:57] LABS: URBCS1 AUWI 0-2 /[HPF] (0-2); URINE BACTERIA AUWI 1+ (NEGATIVE); URINE SQUAMOUS EPITHELIAL CELL FEW /[HPF]
[2017-02-20 10:06] LABS: DIFF IND NO
[2017-02-20 10:18] LABS: ALBUMIN SERUM 3.2 g/dL (3.5-5.0); BILIRUBIN,TOTAL 0.4 mg/dL (0.2-2.0); BUN/CREATININE RATIO 21.25; CALCIUM SERUM 8.8 mg/dL (8.4-10.2); CREATININE SERUM 0.8 mg/dL (0.6-1.4); GLOM FILT RATE Estimated 101.8 mL/min (>60); POTASSIUM 4.3 mmol/L (3.5-5.1); PROTEIN TOTAL SERUM 5.6 g/dL (6.0-8.3)
[2017-02-20 10:50] LABS: AMPHETAMINE POS (NEG); BARBITURATES NEG (NEG); BENZODIAZEPINES POS (NEG); COCAINE NEG (NEG); MARIJUANA POS (NEG); OPIATES NEG (NEG); TRICYCLIC ANTIDEPRESSANTS NEG (NEG); U METHADONE NEG (NEG)
[2017-02-24 22:35] LABS: CHLAMYDIA TRACH Detected (Not Detected); N GONOR Not Detected (Not Detected)
== END 2017-02-24 12:31 | disposition home or self-care (01) | DRG 885 ==
LOC: P1E 20:51 → P2S 02-22 13:42
PROVIDERS: Nurse Practitioner Adult Health; Psychiatry & Neurology Psychiatry
PROC: HZ2ZZZZ Detoxification Services for Substance Abuse Treatment (ICD-10-PCS; principal; 2017-02-19)
DX: F31.9 Bipolar disorder, unspecified (principal); F13.20 Sedative, hypnotic or anxiolytic dependence, uncomplicated; F15.20 Other stimulant dependence, uncomplicated; F12.20 Cannabis dependence, uncomplicated; R82.90 Unspecified abnormal findings in urine; H10.31 Unspecified acute conjunctivitis, right eye
CPT/HCPCS: 80053; 80307; 81003; 84703; 85025; 87086; 87491; 87591